=== PATIENT | female | born 1940 | race Caucasian/White ===

== ENCOUNTER 2021-11-23 09:39 | Day surgery (SDC) | payer MEDICAID ==
[~2021-11-23] VITALS: Ht 162.6 cm; Wt 61.3 kg
[~2021-11-23 09:39] MED LIST: ASPI-612 PO
[2021-11-23] MEDS ORDERED: MIDAZolam 1 MG/ML 5ML VIAL ONE (10:28)
[2021-11-23] MEDS ORDERED: fentaNYL/PF 50MCG/1 ML 2ML syringe ONE (10:28)
[2021-11-23 10:30] VITALS: BP 143/94
[2021-11-23] MEDS ORDERED: AMLO10TA13 PO (11:04)
[2021-11-23] MEDS ORDERED: FAMO20TA8 PO (11:04)
[2021-11-23] MEDS ORDERED: ALEN70TA80 PO (11:04)
[2021-11-23] MEDS ORDERED: ACET-75 PO (11:04)
[2021-11-23] MEDS ORDERED: CHOL100017 PO (11:04)
[2021-11-23] MEDS ORDERED: LISI5TAB22 PO (11:04)
[2021-11-23 12:17] VITALS: BP 141/77
[2021-11-23 12:27] VITALS: BP 135/80
[2021-11-23 12:37] VITALS: BP 139/76
== END 2021-11-23 13:00 | disposition home or self-care (01) ==
LOC: GI LAB 09:39
PROVIDERS: ATTEND Internal Medicine Gastroenterology
DX: Z09 Encounter for follow-up examination after completed treatment for conditions other than malignant neoplasm (principal); K63.5 Polyp of colon; K57.30 Diverticulosis of large intestine without perforation or abscess without bleeding; K64.8 Other hemorrhoids; Z86.010 Personal history of colon polyps
CPT/HCPCS: 45385; 99152; C1773; J2250; J3010; J7030; Z7512; 99153; A4620